=== PATIENT | female | born 1980 | race Caucasian/White ===

== ENCOUNTER → 2023-06-07 13:39 | Outpatient (REF) | payer BC, SELFPAY | LOC: WDC 13:39 | PROVIDERS: ATTENDING PHYSICIAN Obstetrics & Gynecology; FAMILY PHYSICIAN Physician Assistant Medical | DX: Z12.31 Encounter for screening mammogram for malignant neoplasm of breast (principal) | CPT/HCPCS: 77063; 77067 ==

== ENCOUNTER → 2023-06-10 08:56 | Outpatient (REF) | payer BC, SELFPAY | LOC: WDC 08:56 | PROVIDERS: ATTENDING PHYSICIAN Obstetrics & Gynecology; FAMILY PHYSICIAN Physician Assistant Medical | DX: R92.8 Other abnormal and inconclusive findings on diagnostic imaging of breast (principal) | CPT/HCPCS: 76642 ==

== ENCOUNTER → 2024-05-02 16:17 | Outpatient (REF) | payer BC, SELFPAY | LOC: RAD 16:17 | PROVIDERS: ATTENDING PHYSICIAN Student in an Organized Health Care Education/Training Program; REFERRING PHYSICIAN Physician Assistant Medical | DX: R19.7 Diarrhea, unspecified (principal); R10.9 Unspecified abdominal pain; R19.5 Other fecal abnormalities | CPT/HCPCS: 74177; Q9967 ==

== ENCOUNTER → 2024-07-02 07:57 | Outpatient (REF) | payer BC, SELFPAY | LOC: HWWDC 07:57 | PROVIDERS: ATTENDING PHYSICIAN Obstetrics & Gynecology; FAMILY PHYSICIAN Physician Assistant Medical | DX: Z12.31 Encounter for screening mammogram for malignant neoplasm of breast (principal) | CPT/HCPCS: 77063; 77067 ==

== ENCOUNTER 2024-08-20 06:25 | Day surgery (SDC) | payer BC, SELFPAY ==
[2024-08-20 08:47] LABS: Glucose - Point of Care 83 mg/dl (70-99)
== END 2024-08-20 10:42 | disposition home or self-care (01) ==
LOC: GI 06:25
PROVIDERS: ATTENDING PHYSICIAN Internal Medicine Gastroenterology
DX: K52.9 Noninfective gastroenteritis and colitis, unspecified (principal); R19.4 Change in bowel habit; K64.9 Unspecified hemorrhoids; K57.30 Diverticulosis of large intestine without perforation or abscess without bleeding; K63.5 Polyp of colon
CPT/HCPCS: 45385; 45380; 88305; 82962

== ENCOUNTER → 2024-10-08 15:55 | Outpatient (REF) | payer BC, SELFPAY | LOC: HWRAD 15:55 | PROVIDERS: ATTENDING PHYSICIAN Student in an Organized Health Care Education/Training Program; FAMILY PHYSICIAN Physician Assistant Medical | DX: M79.674 Pain in right toe(s) (principal) | CPT/HCPCS: 73630 ==

== ENCOUNTER 2024-10-19 16:41 | Emergency (ER) | payer BC, SELFPAY ==
[2024-10-19 16:46] VITALS: BP 138/89
[2024-10-19 17:05] LABS: % Basophils 0.8 % (0-2); % Eosinophils 1.1 % (0-6); % Immature Granulocytes 0.2 % (0-0.5); % Lymphocytes 34.4 % (20.5-51.1); % Monocytes 6.4 % (1.7-9.3); % Neutrophils 57.1 % (42.2-75.2); Absolute Basophils 0.1 10^3/uL (0-0.2); Absolute Eosinophils 0.1 10^3/uL (0-0.7); Absolute Monocytes 0.6 10^3/uL (0.1-0.6); Hemoglobin 14.1 g/dL (12.0-16.0); Mean Corp Hgb Conc. 35.3 g/dL (33.0-37.0); Mean Corpuscular Hgb 30.3 pg (27.0-31.0); Mean Platelet Volume 8.5 fL (7.4-10.4); Nucleated Red Blood Cells % 0 %; Platelet Count 292 10^3/uL (130-400); Red Blood Cell Count 4.65 10^6/uL (4.20-5.40); Red Cell Dist. Width 12.1 % (11.5-14.5); White Blood Cell Count 8.7 10^3/uL (4.8-10.8)
[2024-10-19 17:12] LABS: Urine Albumin Negative (Neg - Trace); Urine Bilirubin Negative (Negative); Urine Character Clear (Clear); Urine Color Yellow; Urine Glucose Negative (Negative); Urine Ketone Negative (Negative); Urine Leukocyte Negative (Negative); Urine Nitrite Positive (Negative); Urine Occult Blood 1+ (Negative); Urine Specific Gravity 1.015 (<1.030); Urine Urobilinogen Negative (Neg - 1+); Urine pH 6.5 (5.0-9.0)
[2024-10-19 17:15] LABS: ALT (SGPT) 15 U/L (0-35); AST (SGOT) 20 U/L (14-36); Albumin 4.6 g/dl (3.5-5.0); Alkaline Phosphatase 43 U/L (38-126); Blood Urea Nitrogen 12 mg/dl (7-17); Calcium 9.7 mg/dl (8.4-10.2); Carbon Dioxide 30 mmol/L (22-30); Chloride 102 mmol/L (98-107); Glucose 95 mg/dl (70-99); Lipase 97 U/L (23-300); Potassium 3.7 mmol/L (3.5-5.1); Sodium 138 mmol/L (135-145); Total Bilirubin 0.5 mg/dl (0.2-1.3); Total Protein 7.1 g/dl (6.3-8.2); eGFR > 60.00
--- NOTE | 2024-10-19 18:55 | ED.GENMED ---
History of Present Illness
General
Chief Complaint: Flank Pain
Source: patient
Exam Limitations: none
Time Seen by Provider: 10/19/24 18:45
History of Present Illness
History of Present Illness:
See MDM
Past History
Past History
ED Past Medical History: HTN and Psychiatric (Anxiety)
ED Past Surgical History: , Gynecological (Uterine ablation/tubal ligation) and Orthopedic
Social History
Tobacco: Non-smoker
Personal:
Living: with family
Employment: Employed (Daycare)
Family History
Family History: Other (Noncontributory)
Phy Exam
Physical Exam
Physical Exam:
See MDM
Course
Orders/Labs/Results
Orders:
Orders
10/19/24 16:53
Complete Blood Count/With Diff Urgent
Comprehensive Metabolic Panel Urgent
HCG, Serum Qualitative Screen Urgent
Comment: ADD ON
Lipase Urgent
Urinalysis Reflex To Culture Urgent
Date Specimen was Collected: 10/19/24
Time Specimen was Collected: 16:46
Urine Microscopic Reflex Cult Urgent
Urine Culture Urgent
LILLY Source: U
Specimen Description:
Date Specimen was Collected: 10/19/24
Time Specimen was Collected: 16:46
10/19/24 18:50
CT Abd/pelvis W Iv Cont Urgent
Comment:
Reason For Exam: R flank and RLQ pain
0.9% Sodium Chloride 1000 ml [Nss] 1,000 ml IV BOLUS
CefTRIAXone [Rocephin] 1,000 mg IV NOW STA
Ketorolac [Toradol] 30 mg IV NOW STA
10/19/24 18:51
Add On- LAB Urgent
Tests Added?: Serum HCG qualitative
Abnormal Lab Results
10/19/24
16:53
Ur Occult Blood Reflex 1+ A
(Negative)
Urine Nitrite (Reflex) Positive A
(Negative)
Urine RBC 3-6 A /HPF
(0-2)
10/19/24 16:53
10/19/24 16:53
Vital Signs
Initial and Last Documented VS:
Initial Vital Signs
Temp Pulse Resp BP Pulse Ox
98.1 F 88 16 138/89 100
10/19/24 16:46 10/19/24 16:46 10/19/24 16:46 10/19/24 16:46 10/19/24 16:46
Last Documented Vital Signs
Temp Pulse Resp BP Pulse Ox
98.1 F 88 16 127/86 100
10/19/24 16:46 10/19/24 16:46 10/19/24 16:46 10/19/24 20:00 10/19/24 20:45
MDM/Problems Addressed
Differential Diagnosis Includes:
HPI and MDM Narrative:
44-year-old female presenting with right flank and right lower abdominal pain. Patient was concerned this could be appendicitis. Her nausea has improved. She denies fevers. She does believe some of her symptoms were sparked by increased activity
over the weekend.
Blood work was performed prior to my evaluation. Labs without significant abnormality. Her urinalysis is concerning for nitrate positive urine. Patient does have a history of interstitial cystitis but states she does not have the normal bladder
pain that she gets.
Given the flank pain and the nitrite positive urine, will treat as pyelonephritis with Rocephin. Will obtain CT to rule out any evidence of acute appendicitis or kidney stone pathology
Physical exam
General: Well appearing and non-toxic
HEENT: protecting airway
Neck: appears supple
CV: No evidence of cyanosis
Resp: No accessory muscle use
Abd: Non-distended. Mild tenderness to right flank and right lower quadrant without rebound
Extremities: No deformities
Neuro: alert
Psych: Normal affect
Skin: Intact
Problems Addressed including Acute and Chronic Conditions affecting care:
1. Abdominal pain
Acuity: acute
Prognosis: stable
Details: Will treat as pyelonephritis will obtain CT to rule out appendicitis
Updates
CT shows evidence of constipation. Will place on Keflex to treat pyelonephritis. Discussed stool softeners MiraLAX. We discussed incidental CT findings and patient given printout of CT report
Differential Diagnosis (but not limited to): Pyelonephritis, kidney stone, appendicitis, colitis
Testing considered: Abdominal ultrasound
Drug therapy (if applicable): OTC meds, please see d/c instruction regarding Rx drugs
Amount and/or Complexity of Data Reviewed
Clinical info obtained from: Patient
External data reviewed: N/A
Labs I independently reviewed (but not limited to): White blood cell count normal
Radiology: The CT scan was personally and independently reviewed. In addition, official CT report reviewed.
Pulse Ox: not hypoxic
EKG independently reviewed: N/A
Attendant Coin Operated Laundry: N/A
Critical Care: N/A
Risk of Complication:
Social Determinants of health: Good social support
Discussed with other providers: N/A
Escalation of Care includes Admit/Obs: After being observed in the Emergency Department, pt stable for discharge.
Occasional wrong word or 'sound a like' substitutions may have occurred due to the inherent limitations of voice recognition software. Read the chart carefully and recognize, using context, where substitutions have occurred.
*Pulse Oximetry
SaO2: 100
Oxygen Mode of Delivery: Room air
Patient hypoxic: no
*Critical Care Note
Total Time (30-74mins, 75-104mins- exclusive of procedures): Not Applicable
ED Attending Note
-
Portions of this chart may have been created with voice recognition software.� Occasional wrong word or��sound alike� substitutions may have occurred due to the inherent limitations of voice recognition software.
Discharge Plan
Departure
Patient Disposition: Home (Routine Discharge)
Date of Disposition: 10/19/24
Time of Disposition: 21:53
Patient with high blood pressure during this ER visit?: No
Discharge Problem:
Pyelonephritis, Constipation
Instructions: Urinary tract infections in adults, Constipation in adults - ED discharge instructions
Prescriptions:
New
cephalexin 500 mg tablet
1,000 mg PO BID 7 Days Qty: 28 0RF
No Action
clonazepam 0.5 MG tablet
0.5 mg PO HS
duloxetine 60 MG capsule,delayed release(DR/EC)
60 mg PO DAILY
oxycodone 5 MG tablet
5 mg PO Q4HPRN PRN (Reason: severe pain ) Qty: 20 0RF
acetaminophen 325 MG capsule
325 mg PO Q4HPRN PRN (Reason: mild pain/cramps) Qty: 30 0RF
ibuprofen 600 MG tablet
600 mg PO Q4HPRN PRN (Reason: mild/moderate cramps) Qty: 30 0RF
Referrals:
Zara Kothari PA-C [Family Provider, Family Practice]
Activity Restrictions/Additional Instructions:
Please return for any worsening symptoms.
You may return at any time if you have further concerns.
Please follow up with your doctor at the first available appointment, preferably this week.
Please start taking a stool softener daily. Please take MiraLAX for the next several days until symptoms resolve
Thank you for choosing [facility].
Interventions
Interventions:
*Risk Screen - Suicide Last Done: 10/19/24 17:30
*General Assessment Last Done: 10/19/24 17:30
*Neglect/Abuse Screening Last Done: 10/19/24 17:30
*ED COVID-19 Vaccine History Last Done: 10/19/24 17:30
OZ-Kxrakt-Bjyxhuursf Assessment Last Done: 10/19/24 17:30
ED-Female Genitourinary Assessment Last Done: 10/19/24 17:30
Discharge Date and Time
Print Language: [place]
[2024-10-19] MEDS: NSS 1000 IV (19:17)
[2024-10-19] MEDS: TORADOL 30 MG IV (19:20)
[2024-10-19] MEDS: ROCEPHIN 1000 MG IV (19:21)
[2024-10-19 19:26] LABS: HCG, Serum Qualitative Screen Negative
[2024-10-19 19:29] VITALS: BP 130/87
[2024-10-19 19:30] VITALS: BMI 25.8
[2024-10-19 20:00] VITALS: BP 127/86
[2024-10-19 21:00] VITALS: BP 127/84
== END 2024-10-19 22:04 | disposition home or self-care (01) ==
LOC: EMR 16:41
PROVIDERS: Emergency Medicine; EMERGENCY PHYSICIAN Student in an Organized Health Care Education/Training Program; FAMILY PHYSICIAN Physician Assistant Medical
DX: N12 Tubulo-interstitial nephritis, not specified as acute or chronic (principal); K59.00 Constipation, unspecified; I10 Essential (primary) hypertension
CPT/HCPCS: 96374; 96375; 96361; 99284; 74177; 80053; 81003; 81015; 83690; 84703; 85025; 87086; Q9967